=== PATIENT | male | born 1980 | race African-American/Black ===

== ENCOUNTER 2023-09-06 09:36 | Emergency (ER) | payer MEDICAID, OTHER ==
[~2023-09-06] VITALS: Ht 170.2 cm; Wt 72.6 kg
[2023-09-06 09:41] VITALS: BP 99/64; O2SAT 98
[2023-09-06] MEDS ORDERED: AMOX50SU15 MT (10:10)
[2023-09-06] MEDS ORDERED: KETOROLAC 60MG/2ML VIAL IM ONE (10:15)
[2023-09-06 10:36] VITALS: PULSE 72; RESP 16; TEMP 98.2
== END 2023-09-06 10:39 | disposition home or self-care (01) ==
LOC: ER 10:32
DX: S81.852A Open bite, left lower leg, initial encounter (principal); W54.0XXA Bitten by dog, initial encounter; Y93.89 Activity, other specified; Y92.89 Other specified places as the place of occurrence of the external cause; Y99.8 Other external cause status
CPT/HCPCS: 96372; 99283; J1885; Z7610 ×2